=== PATIENT | female | born 1980 | race Two or more races ===

== ENCOUNTER 2024-03-26 04:26 | Emergency (ER) | payer MEDICAID, OTHER ==
[~2024-03-26] VITALS: Ht 165.1 cm; Wt 55.0 kg
[2024-03-26 04:28] VITALS: BP 120/71; PULSE 74; RESP 16; O2SAT 95
== END 2024-03-26 07:23 | disposition left against medical advice (07) ==
LOC: EDBD 04:26 → ER 04:26
DX: Z00.00 Encounter for general adult medical examination without abnormal findings (principal); Z53.21 Procedure and treatment not carried out due to patient leaving prior to being seen by health care provider